=== PATIENT | male | born 1980 | race Hispanic/Latino ===

== ENCOUNTER 2025-04-24 13:08 | Outpatient (CLI) | payer BC ==
[~2025-04-24 13:08] MED LIST: Iopamidol 370 76% 100 ML VIAL ONE
== END 2025-04-24 13:09 | disposition home or self-care (01) ==
LOC: CT 13:08
PROVIDERS: ATTEND Family Medicine
DX: R10.13 Epigastric pain (principal)
CPT/HCPCS: 74177; Q9967